=== PATIENT | female | born 1975 | race Hispanic/Latino ===

== ENCOUNTER 2018-09-24 08:05 | Outpatient (CLI) | payer BC ==
--- NOTE | 2018-09-24 10:41 | ULT ---
ABDOMINAL ULTRASOUND COMPLETE: HISTORY: Elevated liver enzymes. FINDINGS: The liver appears unremarkable. There are multiple small echogenic foci within the gallbladder which are nonmobile and may well represent polyps. Common bile duct 0.2 cm. No gallbladder wall thickeni ng or pericholecystic fluid or other signs of acute cholecystitis. No liver masses. The visualized p ancreas, IVC, aorta, and spleen are unremarkable. No renal hydronephrosis. No abscess or abnormal f luid collection. IMPRESSION: Multiple small echogenic foci along the wall of the lumen of the gallbladder which did not move and d id not cast acoustical shadows most suggestive of gallbladder wall polyps. No other significant acut e process. POS: [facility]
== END 2018-09-24 08:06 | disposition home or self-care (01) ==
LOC: BICULT 08:05
PROVIDERS: ATTEND Family Medicine
DX: R74.8 Abnormal levels of other serum enzymes (principal); R93.3 Abnormal findings on diagnostic imaging of other parts of digestive tract
CPT/HCPCS: 76700

== ENCOUNTER 2019-10-12 11:00 | Outpatient (CLI) | payer BC ==
--- NOTE | 2019-10-12 11:55 | MMO ---
Bilateral MAMMO Bilat Screen [facility]. CLINICAL HISTORY: Patient is 44 years old and is seen for screening. The patient has no family history of breast cancer. The patient has no personal history of cancer. The patient has a history of left Excisional Biopsy in 2009 - benign. VIEWS: The views performed were: bilateral craniocaudal with tomosynthesis and bilateral mediolateral oblique with tomosynthesis. This study has been interpreted with the assistance of computer-aided detection. MAMMOGRAM FINDINGS: The breasts are heterogeneously dense, which could obscure a lesion on mammography. There are benign appearing calcifications seen in both breasts. There are no suspicious masses, suspicious calcifications, or new areas of architectural distortion. IMPRESSION: THERE IS NO MAMMOGRAPHIC EVIDENCE OF MALIGNANCY. A ROUTINE FOLLOW-UP MAMMOGRAM IN 1 YEAR IS RECOMMENDED. THE RESULTS OF THIS EXAM WERE SENT TO THE PATIENT. ACR BI-RADS Category 2 - Benign finding MAMMOGRAPHY NOTE: 1. A negative mammogram report should not delay a biopsy if a dominant of clinically suspicious mass is present. 2. Approximately 10% to 15% of breast cancers are not detected by mammography. 3. Adenosis and dense breasts may obscure an underlying neoplasm. Reported by: OMAR GALVAN MD Electonically Signed: [id number]
== END 2019-10-12 11:01 | disposition home or self-care (01) ==
LOC: BICMAMMO 11:00
PROVIDERS: ATTEND Family Medicine
DX: Z12.31 Encounter for screening mammogram for malignant neoplasm of breast (principal); Z91.89 Other specified personal risk factors, not elsewhere classified
CPT/HCPCS: 77063; 77067

== ENCOUNTER 2021-09-18 10:11 | Outpatient (CLI) | payer BC | END 2021-09-18 10:12 | disposition home or self-care (01) | LOC: BICMAMMO 10:11 | PROVIDERS: ATTEND Family Medicine | DX: Z12.31 Encounter for screening mammogram for malignant neoplasm of breast (principal); Z91.89 Other specified personal risk factors, not elsewhere classified | CPT/HCPCS: 77063; 77067 ==

== ENCOUNTER 2024-04-20 08:48 | Outpatient (CLI) | payer BC | END 2024-04-20 08:49 | disposition home or self-care (01) | LOC: BICMAMMO 08:48 | PROVIDERS: ATTEND Family Medicine | DX: Z12.31 Encounter for screening mammogram for malignant neoplasm of breast (principal); R92.1 Mammographic calcification found on diagnostic imaging of breast; Z91.89 Other specified personal risk factors, not elsewhere classified | CPT/HCPCS: 77063; 77067 ==

== ENCOUNTER 2024-04-29 08:56 | Outpatient (CLI) | payer BC | END 2024-04-29 08:57 | disposition home or self-care (01) | LOC: BICMAMMO 08:56 | PROVIDERS: ATTEND Family Medicine | DX: R92.1 Mammographic calcification found on diagnostic imaging of breast (principal) | CPT/HCPCS: G0279 ==